=== PATIENT | male | born 1970 | race Two or more races ===

== ENCOUNTER 2017-11-25 18:14 | Emergency (ER) | payer MEDICARE, MEDICAID ==
[~2017-11-25] VITALS: Ht 175.3 cm; Wt 117.9 kg
[~2017-11-25 18:14] MED LIST: HYDR-548 PO; INSULIN; LISI-603 PO; SIMV5TAB2 PO
[2017-11-25 18:23] VITALS: BP 131/88
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
[2017-11-25] MEDS ORDERED: HYDROMORPHONE 1 MG/1 ML DISP.SYRIN ONE (18:58)
[2017-11-25] MEDS ORDERED: HYDROMORPHONE INJ 0.5 MG/0.5 ML SYRINGE IM ONE (19:00)
== END 2017-11-25 20:01 | disposition home or self-care (01) ==
LOC: ER 18:16
DX: M25.572 Pain in left ankle and joints of left foot (principal); R06.2 Wheezing; E11.9 Type 2 diabetes mellitus without complications; F32.9 Major depressive disorder, single episode, unspecified; G89.29 Other chronic pain; I10 Essential (primary) hypertension; K21.9 Gastro-esophageal reflux disease without esophagitis; Z79.4 Long term (current) use of insulin; Z90.89 Acquired absence of other organs
CPT/HCPCS: 73610; 96372; 99284; A4606; J1170; Z7610

== ENCOUNTER 2019-05-01 20:49 | Emergency (ER) | payer MEDICARE, MEDICAID ==
[~2019-05-01] VITALS: Ht 172.7 cm; Wt 113.4 kg
[~2019-05-01 20:49] MED LIST changes: +HYDR-4354 PO; -HYDR-548 PO
[2019-05-01 20:56] VITALS: BP 127/85
[2019-05-01] MEDS ORDERED: LIDOCAINE 1%-EPI 1:100,000 20 ML VIAL ONE (21:09)
[2019-05-01] MEDS ORDERED: MORPHINE SULFATE INJ 4 MG/ML DISP.SYRIN ONE (21:10)
[2019-05-01] MEDS ORDERED: LORAZEPAM 1 MG TABLET ONE (21:10)
[2019-05-01] MEDS ORDERED: LIDOCAINE 1%-EPI 1:100,000 20 ML VIAL TP ONE (21:30)
[2019-05-01] MEDS ORDERED: LORAZEPAM 1 MG TABLET PO ONE (21:30)
[2019-05-01] MEDS ORDERED: MORPHINE SULFATE INJ 4 MG/ML DISP.SYRIN IM ONE (21:30)
== END 2019-05-01 22:46 | disposition home or self-care (01) ==
LOC: ER 20:52
DX: L02.411 Cutaneous abscess of right axilla (principal); E11.9 Type 2 diabetes mellitus without complications; F11.10 Opioid abuse, uncomplicated; F19.10 Other psychoactive substance abuse, uncomplicated; E66.9 Obesity, unspecified; I10 Essential (primary) hypertension; K21.9 Gastro-esophageal reflux disease without esophagitis; F32.9 Major depressive disorder, single episode, unspecified; Z76.5 Malingerer [conscious simulation]; Z68.38 Body mass index [BMI] 38.0-38.9, adult; Z98.890 Other specified postprocedural states; Z90.89 Acquired absence of other organs; Z79.899 Other long term (current) drug therapy
CPT/HCPCS: 10060; 96372; 99283; A6402; A6407; J2270; J3490

== ENCOUNTER 2019-05-05 00:01 | Emergency (ER) | payer MEDICARE, MEDICAID ==
[~2019-05-05] VITALS: Ht 170.2 cm; Wt 117.9 kg
[2019-05-05 00:54] VITALS: BP 113/78
--- NOTE | 2019-05-05 01:50 | NUR ---
PT WAS DISCHARGED AND LEFT THE HOSPITAL IN STABLE CONDITION. PT REFUSED TO SIGN THE HOME LESS CHECKLIST, REFUSED SNACKS , RESOURCES FOR SHELTERS AND TRANSPORTATION ARRANGEMENT. A GOOD WOUND CARE WAS PROVIDED CAR BRACER. VERBAL AND WRITTEN AFTER DISCHARGE CARE GIVEN TO THE PT W/ UNDERSTANDING/
== END 2019-05-05 01:55 | disposition home or self-care (01) ==
LOC: ER 00:03
DX: Z48.01 Encounter for change or removal of surgical wound dressing (principal); I10 Essential (primary) hypertension; K21.9 Gastro-esophageal reflux disease without esophagitis; E11.9 Type 2 diabetes mellitus without complications; F32.9 Major depressive disorder, single episode, unspecified; Z90.89 Acquired absence of other organs; Z98.890 Other specified postprocedural states; Z79.899 Other long term (current) drug therapy
CPT/HCPCS: Z7502

== ENCOUNTER 2022-11-29 11:00 | Outpatient (CLI) | payer MEDICARE, OTHER ==
[~2022-11-29 11:00] MED LIST changes: -LISI-603 PO; +LISI20TA30 PO
== END 2022-11-29 23:59 | disposition home or self-care (01) ==
LOC: WOU 11:00
PROVIDERS: ATTEND Podiatrist Foot & Ankle Surgery
DX: S91.312A Laceration without foreign body, left foot, initial encounter (principal); X58.XXXA Exposure to other specified factors, initial encounter; Y92.89 Other specified places as the place of occurrence of the external cause; E11.9 Type 2 diabetes mellitus without complications; M79.675 Pain in left toe(s)
CPT/HCPCS: 11042